=== PATIENT | female | born 1955 | race Caucasian/White ===

== ENCOUNTER → 2016-12-25 | Outpatient (CLI) | payer BC ==
[~2016-12-25] MED LIST: ASPIRIN81 M1 PO; PLAQUENIL200 MG PO; TRAZODONE HCL150 MG PO; ZOLOFT100 MG PO; ZOLOFT50 MG PO
== END | disposition home or self-care (01) ==
LOC: AMB 12:02
PROC: 0HB6XZX Excision of Back Skin, External Approach, Diagnostic (ICD-10-PCS; principal; 2016-12-25)
DX: C85.18 Unspecified B-cell lymphoma, lymph nodes of multiple sites (principal)
CPT/HCPCS: 88305; 88341 TC; 88342 TC

== ENCOUNTER → 2017-04-02 | Outpatient (CLI) | payer BC ==
[~2017-04-02] MED LIST changes: +DESYREL 150 MG150 MG PO
== END | disposition home or self-care (01) ==
LOC: AMB 08:23
DX: C85.18 Unspecified B-cell lymphoma, lymph nodes of multiple sites (principal)
CPT/HCPCS: 88305

== ENCOUNTER 2017-07-13 19:57 | Observation (INO) | payer BC ==
[~2017-07-13] VITALS: Ht 175.3 cm; Wt 66.5 kg
[~2017-07-13 19:57] MED LIST changes: -DESYREL 150 MG150 MG PO; +DESYREL100 MG PO
[2017-07-13] MEDS ORDERED: ASPIRIN81 M2 PO (21:13)
[2017-07-13 21:44] LABS: HEMATOCRIT 34.7 % (36.0-46.0); MCH 29.6 PG (29.0-34.0); MCHC 34.6 G/DL (30.0-36.0); MCV 85.7 FL (83-99); PLATELET COUNT 268 K/uL (156-360); RBC DIS.WIDTH-SD 38.3 % (39-53); RED BLOOD COUNT 4.05 M/uL (3.80-5.20); WHITE BLOOD COUNT 5.7 K/uL (4.1-10.2)
[2017-07-13 22:07] LABS: ALBUMIN 3.9 g/dL (3.2-4.8); CHLORIDE 98 mEq/L (99-109); POTASSIUM 3.8 mEq/L (3.7-5.4); SODIUM 132 mEq/L (136-147)
[2017-07-13 22:09] LABS: GLUCOSE 101 mg/dL (70-99)
[2017-07-13 22:10] LABS: TOTAL PROTEIN 8.2 g/dL (6.4-8.3)
[2017-07-13 22:11] LABS: TOTAL BILIRUBIN 0.5 mg/dL (0.0-1.0)
[2017-07-13 22:13] LABS: APPEARANCE SL.HAZY ((CLEAR)); BILIRUBIN NEGATIVE; BLOOD NEGATIVE; COLOR YELLOW ((YELLOW)); GLUCOSE (STRIP) NEGATIVE; KETONES NEGATIVE; LEUKOCYTES MODERATE; NITRITE NEGATIVE; PROTEIN (STRIP) NEGATIVE; SPECIFIC GRAVITY 1.013 (1.000-1.030)
[2017-07-13 22:13] LABS: ALKALINE PHOSPHATASE 128 IU/L (3-129); CREATININE 0.9 mg/dL (0.6-1.3); GFR ESTIMATE (CALCULATED) > 59 mL/min/
[2017-07-13 22:14] LABS: UREA NITROGEN (BUN) 17 mg/dL (9-23)
[2017-07-13 22:15] LABS: AST (GOT) 59 IU/L (2-34)
[2017-07-13 22:16] LABS: ALT (GPT) 50 IU/L (3-49)
[2017-07-13 22:39] LABS: BACTERIA NONE SEEN /HPF; EPITHELIAL CELLS 1+ /HPF; MUCUS TRACE /LPF; UCUL ADDED? YES; WHITE BLOOD CELLS 30-40 /HPF (0-5)
[2017-07-14 00:50] VITALS: BP 120/62
[2017-07-14 00:50] LABS: PTT 34.2 SEC (25-37)
[2017-07-14 01:31] LABS: HDL CHOLESTEROL 50 MG/DL (Desirable>=50); LDL CHOLESTEROL 88 mg/dL (Desirable<100); NON-HDL CHOLESTEROL 120 mg/dL (Desirable<160); TOTAL CHOLESTEROL 170 mg/dL (Desirable<200); TRIGLYCERIDES 162 MG/DL (Normal: <150)
[2017-07-14 05:12] LABS: HEMATOCRIT 34.2 % (36.0-46.0); HEMOGLOBIN 11.1 G/DL (11.9-15.5); MCH 28.2 PG (29.0-34.0); MCHC 32.5 G/DL (30.0-36.0); MCV 86.8 FL (83-99); PLATELET COUNT 228 K/uL (156-360); RBC DIS.WIDTH-SD 38.8 % (39-53); RED BLOOD COUNT 3.94 M/uL (3.80-5.20); WHITE BLOOD COUNT 4.9 K/uL (4.1-10.2)
[2017-07-14 05:31] LABS: TROP-I INTERPRETATION NEGATIVE; TROPONIN-I < 0.01 ng/mL (0.0-0.30)
[2017-07-14 09:15] VITALS: BP 124/69
[2017-07-14] MEDS ORDERED: CEFTIN500 MG PO (10:11)
[2017-07-14 10:46] LABS: HEMOGLOBIN A1c (GLYCOHEMOGLOB) 5.4 % (Below 5.7)
[2017-07-14 12:38] LABS: TROP-I INTERPRETATION NEGATIVE; TROPONIN-I 0.01 ng/mL (0.0-0.30)
== END 2017-07-14 15:22 | disposition home or self-care (01) ==
LOC: EME 19:57 → 4SOUTH 23:40 → EDOF 23:40 → ENRESERV 23:46 → 4SOUTH 07-14 00:42
PROVIDERS: Hospitalist
DX: N39.0 Urinary tract infection, site not specified (principal); D68.9 Coagulation defect, unspecified; M35.00 Sjogren syndrome, unspecified; E11.9 Type 2 diabetes mellitus without complications; Z96.649 Presence of unspecified artificial hip joint; Z85.72 Personal history of non-Hodgkin lymphomas; Z90.710 Acquired absence of both cervix and uterus; Z82.5 Family history of asthma and other chronic lower respiratory diseases; Z80.3 Family history of malignant neoplasm of breast; Z66 Do not resuscitate
CPT/HCPCS: 70450; 71046; 71275; 80053; 80061; 81003; 83036; 84484; 85027; 85379; 85610; 85730; 87086; 93005; 93306; 99281; 99285; G0378; J0696; J7030

== ENCOUNTER 2017-09-28 17:14 | Emergency (ER) | payer OTHER, BC ==
[~2017-09-28] VITALS: Ht 175.3 cm; Wt 63.9 kg
[~2017-09-28 17:14] MED LIST changes: +ASPIRIN81 M2 PO; +CEFTIN500 MG PO
[2017-09-28] MEDS ORDERED: FLEXERIL10 MG PO (19:39)
[2017-09-28 20:02] VITALS: BP 108/82
== END 2017-09-28 20:03 | disposition home or self-care (01) ==
LOC: EME 17:14
PROC: 3E0234Z Introduction of Serum, Toxoid and Vaccine into Muscle, Percutaneous Approach (ICD-10-PCS; principal; 2017-09-28)
DX: S80.12XA Contusion of left lower leg, initial encounter (principal); S81.812A Laceration without foreign body, left lower leg, initial encounter; V43.62XA Car passenger injured in collision with other type car in traffic accident, initial encounter; Y92.410 Unspecified street and highway as the place of occurrence of the external cause; Z23 Encounter for immunization; Z88.8 Allergy status to other drugs, medicaments and biological substances
CPT/HCPCS: 99281; 99284